=== PATIENT | male | born 1980 | race Caucasian/White ===

== ENCOUNTER 2023-12-31 18:06 | Emergency (ER) | payer OTHER, SELFPAY ==
[2023-12-31 18:23] VITALS: BP 137/95; PULSE 81; RESP 20; TEMP 37.1; O2SAT 96; BMI 29.1
--- NOTE | 2023-12-31 19:43 | ED_ITS ---
[facility] - General Adult General Date Seen: 12/31/23 Chief complaint: Abdominal Pain Stated complaint: R hip pain and nausea Time Seen by Provider: 12/31/23 19:32 Source: patient Mode of arrival: ambulatory Limitations: no limitations History of Present Illness HPI narrative: Patient is a 43-year-old male who presents for evaluation of some right lower abdominal and back pain which he says is been present for couple of months. It is intermittent, he notices it when he moves certain ways. If he bends forward, he feels it more toward his posterior iliac spine, if he moves a different way he feels it more in his right lower quadrant/right groin. He has not felt any bulges, it has been more persistent and annoying over the past day or so and earlier today he was feeling kind of nauseated, so he thought he better get it checked out. He made himself throw up earlier because he thought it might help him feel better, but it did not make any difference. He has not had any fevers or chills, denies other vomiting, diarrhea, constipation, urinary symptoms, testicular pain or swelling. Denies any specific injuries. He describes his general health is good. He does not drink, he does vape. Related Data Home Medications ?Medication ?Instructions ?Recorded ?Confirmed No Known Home Medications 12/31/23 12/31/23 Allergies Allergy/AdvReac Type Severity Reaction Status Date / Time amoxicillin Allergy Verified 12/31/23 18:22 Exam Narrative: Exam Narrative: Vital signs as noted above. In general, an alert, well-appearing patient. Head: Normocephalic, atraumatic. Eyes: Pupils are equal reactive. Extraocular movements are full. Conjunctivae are normal. ENT: Mucous membranes are moist. Throat is normal. Neck: Supple without lymphadenopathy. Heart: Regular rate and rhythm. No murmur or rub. Lungs: Clear bilaterally. No increased work of breathing, crackles or wheezes. Abdomen: Abdomen is soft, nondistended and seemingly nontender to palpation. Standing and with attempted Valsalva, I do not feel any obvious hernias in the abdominal wall. No inguinal hernia felt, though patient does not seem to understand how to really Valsalva. Extremities: Well perfused. No edema. No calf tenderness. Pulses intact. Neurologic: Patient is alert and oriented to person and place. Speech is fluent. Face is symmetric. Moves all extremities equally. Affect: Normal. Skin: Warm and dry. Well perfused. Const: Vital Signs, click to edit/add: Vital Signs - 24 hr 12/31/23 18:23 Temperature 98.8 F Pulse Rate [Pulse Oximeter] 81 Respiratory Rate 20 Blood Pressure [Ri ght Upper Arm] 137/95 H Pulse Oximetry 96 Oxygen Delivery Me thod Room Air Documenting provider has reviewed patient's vital signs: yes Course Course ED Course: Discussed options for tonight with him. Given that he has had pain that is positional and reproducible for a couple of months now, I do not have significant suspicion that this is appendicitis nor does it likely represent gallbladder disease, pancreatitis, diverticulitis, or other acute intra- abdominal process. I do think the hernia is possible, but do not detect anything on exam that would suggest strangulation or incarceration. Kidney stone also felt to be fairly unlikely the positional nature of his pain. He would feel most comfortable doing urine and lab test tonight, if these are markedly abnormal then I would go on to do some imaging, otherwise I think we could reasonably left him follow-up as an outpatient. He would like something for pain, will give him some IV Toradol and Zofran for nausea. Feeling somewhat improved after medications. Labs are within normal limits. As such, he feels comfortable with discharge, primary care follow-up. Warning signs to return discussed. Vital Signs Vital signs: Initial Vital Signs Temperature 98.8 F 12/31/23 18:23 Temperature Source Temporal Artery Scan 12/31/23 18:23 Pulse Rate 81 12/31/23 18:23 Pulse Rhythm Regular 12/31/23 18:23 Respiratory Rate 20 12/31/23 18:23 Blood Pressure 137/95 H 12/31/23 18:23 Blood Pressure Mean 109 H 12/31/23 18:23 Blood Pressure Position Sitting 12/31/23 18:23 Pulse Oximetry 96 12/31/23 18:23 Oxygen Delivery Method Room Air 12/31/23 18:23 Vital Signs Temperature 98.8 F 12/31/23 18:23 Pulse Rate 81 12/31/23 18:23 Respiratory Rate 20 12/31/23 18:23 Blood Pressure 137/95 H 12/31/23 18:23 Pulse Oximetry 96 12/31/23 18:23 Oxygen Delivery Method Room Air 12/31/23 18:23 Temperature 98.8 F 12/31/23 18:23 Pulse Rate 81 12/31/23 18:23 Respiratory Rate 20 12/31/23 18:23 Blood Pressure 137/95 H 12/31/23 18:23 Pulse Oximetry 96 12/31/23 18:23 Oxygen Delivery Method Room Air 12/31/23 18:23 Medications Administered Medications: Discontinued Medications Generic Name Dose Route Start Last Admin Trade Name Freq PRN Reason Stop Dose Admin Ketorolac Tromethamine 15 mg 12/31/23 19:42 12/31/23 20:16 Ketorolac 15 Mg/Ml Inj IVP 12/31/23 19:43 15 mg ONCE ONE Administration Ondansetron HCl 4 mg 12/31/23 19:42 12/31/23 20:16 Ondansetron 2 Mg/Ml Inj IVP 12/31/23 19:43 4 mg ONCE ONE Administration Medical Decision Making Lab Data Labs: Lab Results 12/31/23 12/31/23 Range/Units 19:43 20:10 WBC 11.33 H (4.50-11.00) K/uL RBC 4.55 (4.30-5.90) m/uL Hgb 14.2 (13.5-17.5) gm/dL Hct 40.7 (37.0-53.0) % MCV 90 (80-100) fL MCH 31 (26-34) pg MCHC 35 (32-36) gm/dL RDW Coeff of Brayan 12.8 (11.5-15.5) % Plt Count 232 (140-440) K/uL Neut % (Auto) 45.5 (42.0-72.0) % Lymph % (Auto) 25.0 (20-44) % [place] % (Auto) 6.4 (0.0-11.0) % Eos % (Auto) 21.4 H (0.0-7.0) % Baso % (Auto) 1.6 (0.0-3.0) % Neut # (Auto) 5.20 (1.7-7.0) K/uL Lymph # (Auto) 2.80 (0.90-2.90) K/uL [place] # (Auto) 0.70 (0.00-0.90) K/UL Eos # (Auto) 2.40 H (0.00-0.50) K/uL Baso # (Auto) 0.20 (0.00-0.30) K/uL Abs Immat Gran (auto) 0.00 (0.00-0.30) K/uL Imm/Tot Granulo (auto) 0.1 % Sodium 138 (135-149) mmol/L Potassium 3.6 (3.6-5.1) mmol/L Chloride 106 (96-114) mmol/L Carbon Dioxide 23 (20-32) mmol/L Anion Gap 9 (7-15) mEq/L BUN 21 (5-24) mg/dL Creatinine 1.1 (0.5-1.5) mg/dL Estimated Creat Clear 81.79 Estimated GFR 86 ml/min Glucose 90 (60-115) mg/dL Calcium 9.5 (8.4-10.6) mg/dL Total Bilirubin 0.4 (0.1-1.5) mg/dL Direct Bilirubin 0.3 (0.0-0.5) mg/dL AST 21 (12-35) U/L ALT 19 (4-50) U/L Alkaline Phosphatase 62 (40-150) U/L C-Reactive Protein < 0.5 L (0.5-1.0) mg/dL Total Protein 7.0 (6.0-8.3) g/dL Albumin 4.6 (3.3-5.0) g/dL Urine Color Yellow (Yellow) Urine Appearance Clear (Clear) Urine pH 5.5 (5.0-8.5) Ur Specific [place] >= 1.030 (1.000-1.030) Urine Protein Negative (Negative) Urine Glucose (UA) Negative (Negative) Urine Ketones Negative (Negative) Urine Blood Negative (Negative) Urine Nitrite Negative (Negative) Urine Bilirubin Negative (Negative) Urine Urobilinogen 0.2 (0.2-1.0) Ur Leukocyte Esterase Negative (Negative) Urine RBC 0-2 (0-2) Urine WBC 0-2 (0-5) Ur Squamous Epith Cells None (None-Few) Urine Bacteria None (None) Discharge Plan Discharge Clinical Impression: Abdominal pain Patient Disposition: Home, Self-Care Condition: Stable Instructions: Abdominal Pain (ED) Additional Instructions: Cause of your symptoms is at this time unclear. Your workup tonight is normal. I would recommend you follow-up with your regular clinic for discussion of further evaluation. Trial of ibuprofen, 400 mg 3 times daily with food for up to 1 week. Return for more severe pain or new symptoms such as fever, vomiting, urinary symptoms etcetera. Activity Level: No Restrictions Discharge Diet: Regular Prescriptions: No Action No Known Home Medications Follow Up/Referrals: Provider,Not a Local [Primary Care Provider] - Stand Alone Forms: Intradiem Info Instructions
[2023-12-31 20:13] LABS: Basophils Percent Auto 1.6 % (0.0-3.0); Eosinophils Percent Auto 21.4 % (0.0-7.0); Hematocrit 40.7 % (37.0-53.0); Hemoglobin* 14.2 gm/dL (13.5-17.5); Immature Granulocytes Pct Auto 0.1 %; Mean Corpuscular HGB Conc 35 gm/dL (32-36); Mean Corpuscular Hemoglobin 31 pg (26-34); Mean Corpuscular Volume 90 fL (80-100); Monocytes Percent Auto 6.4 % (0.0-11.0); Neutrophils Percent Auto 45.5 % (42.0-72.0); Platelet Count* 232 K/uL (140-440); RDW Coefficient of Variation % 12.8 % (11.5-15.5); Red Blood Count 4.55 m/uL (4.30-5.90); White Blood Count* 11.33 K/uL (4.50-11.00)
[2023-12-31] MEDS: ONDANSETRON 2 MG/ML inj 4 MG IVP (20:16)
[2023-12-31] MEDS: KETOROLAC 15 MG/ML inj IVP (20:16)
[2023-12-31 20:23] LABS: Slide Review Reflex No
[2023-12-31 20:23] LABS: Appearance Urine Clear (Clear); Bilirubin Urine Negative (Negative); Blood Urine Negative (Negative); Color Urine Yellow (Yellow); Glucose Urine Negative (Negative); Ketones Urine Negative (Negative); Leukocyte Esterase Urine Negative (Negative); Nitrite Urine Negative (Negative); Protein Urine Negative (Negative); Specific Gravity Urine >= 1.030 (1.000-1.030); Urobilinogen Urine 0.2 (0.2-1.0); pH Urine 5.5 (5.0-8.5)
[2023-12-31 20:37] LABS: RBC Urine 0-2 (0-2); WBC Urine 0-2 (0-5)
[2023-12-31 21:03] LABS: Albumin* 4.6 g/dL (3.3-5.0); Chloride* 106 mmol/L (96-114); Sodium* 138 mmol/L (135-149)
[2023-12-31 21:04] LABS: Potassium* 3.6 mmol/L (3.6-5.1)
[2023-12-31 21:06] LABS: Alanine Aminotransferase* 19 U/L (4-50); Alkaline Phosphatase* 62 U/L (40-150); Anion Gap 9 mEq/L (7-15); Aspartate Amino Transferase* 21 U/L (12-35); Bilirubin Direct* 0.3 mg/dL (0.0-0.5); Bilirubin Total* 0.4 mg/dL (0.1-1.5); Blood Urea Nitrogen* 21 mg/dL (5-24); Carbon Dioxide* 23 mmol/L (20-32); Creatinine* 1.1 mg/dL (0.5-1.5); Est. Creatinine Clearance* 81.79; Estimated Glomerular Filt Rate 86 ml/min
[2023-12-31 21:07] LABS: Calcium* 9.5 mg/dL (8.4-10.6); Glucose* 90 mg/dL (60-115)
[2023-12-31 21:12] LABS: C Reactive Protein* < 0.5 mg/dL (0.5-1.0)
== END 2023-12-31 21:25 | disposition home or self-care (01) ==
PROVIDERS: Emergency Provider Emergency Medicine
DX: R10.31 Right lower quadrant pain (principal)
CPT/HCPCS: 36415; 80048; 80076; 81001; 85025; 86140; 96374; 96375; 99283; 99284; J1885; J2405